=== PATIENT | female | born 1950 | race African-American/Black ===

== ENCOUNTER 2019-02-25 14:21 | Inpatient (IN) | payer BC, MEDICARE, OTHER ==
[~2019-02-25] VITALS: Ht 162.6 cm; Wt 71.2 kg
[~2019-02-25 14:21] MED LIST: ASPI-1393 PO; GEMF600T5 PO; GLIP10TA3 PO; LISI40TA4 PO; METF-416 PO; OMEP20CA5 PO; SITA50TA3 PO
[2019-02-25 16:09] LABS: CHLORIDE 108 mEq/L (98-107)
[2019-02-25 16:10] LABS: EOSINOPHILS % 1.8 % (0.0-5.0); LYMPHOCYTES % 26.2 % (20.0-50.0); MEAN CORPUSCULAR VOLUME 60.9 fL (81.0-99.0); MEAN PLATELET VOLUME 8.2 fl (7.4-10.4); MONOCYTES % 8.1 % (2.0-8.0); NEUTROPHILS % 62.9 % (40.0-76.0); PLATELET 426 x1000/uL (130-400); RED BLOOD CELL COUNT 2.88 mill/uL (4.2-5.4); RED CELL DISTRIBUTION WIDTH 19.7 % (11.6-14.6)
[2019-02-25 16:11] LABS: PARTIAL THROMBOPLASTIN TIME 26.8 sec (23.4-31.0); PROTHROMBIN TIME 10.8 sec (9.6-11.0)
[2019-02-25 16:16] LABS: HEMATOCRIT. 17.6 % (36.0-48.0); HEMOGLOBIN. 4.9 g/dL (12.0-16.0)
[2019-02-25 17:34] LABS: TOTAL IRON BINDING CAPACITY 802 ug/dL (250-450)
[2019-02-25 17:35] LABS: HAPTOGLOBIN 247 mg/dL (30-200)
[2019-02-25 17:48] LABS: PLATELET ESTIMATE INCREASED
[2019-02-26] VITALS (14 sets, daily range): BP systolic 123–154; BP diastolic 51–78
[2019-02-26] MEDS ORDERED: HYDR12.54 MT (02:07)
[2019-02-26] MEDS ORDERED: FAMO20TA8 MT (02:07)
[2019-02-26] MEDS ORDERED: DEXTROSE 50% WATER 50ML SYRINGE IV PRN (02:15)
[2019-02-26] MEDS ORDERED: GEMFIBROZIL PO SCH (02:15)
[2019-02-26 02:39] LABS: EOSINOPHILS % 1.9 % (0.0-5.0); LYMPHOCYTES % 18.4 % (20.0-50.0); MEAN CORPUSCULAR HEMOGLOBIN 19.3 pg (28.0-32.0); MEAN CORPUSCULAR VOLUME 64.4 fL (81.0-99.0); MEAN PLATELET VOLUME 7.8 fl (7.4-10.4); MONOCYTES % 7.5 % (2.0-8.0); NEUTROPHILS % 71.2 % (40.0-76.0); PLATELET 368 x1000/uL (130-400); RED BLOOD CELL COUNT 3.02 mill/uL (4.2-5.4); RED CELL DISTRIBUTION WIDTH 25.1 % (11.6-14.6)
[2019-02-26 02:44] LABS: PROTHROMBIN TIME 10.8 sec (9.6-11.0)
[2019-02-26 02:45] LABS: HEMATOCRIT. 19.5 % (36.0-48.0); HEMOGLOBIN. 5.8 g/dL (12.0-16.0)
[2019-02-26] MEDS: BLOOD SUGAR DIAGNOSTIC STRIP TEST SCH ×4 (07:12→21:00)
[2019-02-26] MEDS: INSULIN LISPRO 100 UNITS/ML SUBCUT SCH ×4 (07:54→22:34)
[2019-02-26] MEDS: GEMFIBROZIL 600MG TABLET PO SCH ×2 (09:00→16:46)
[2019-02-26] MEDS ORDERED: ASPIRIN 81MG TABLET PO SCH (09:00)
[2019-02-26] MEDS ORDERED: MEDICATION NOT ON FORMULARY EA (Aspirin (Aspirin Low Dose) 1 TAB) PO SCH (09:00)
[2019-02-26] MEDS ORDERED: MEDICATION NOT ON FORMULARY EA (Hydrochlorothiazide 1 TAB) MT SCH (09:00)
[2019-02-26 10:28] LABS: BASOPHILS % 0.6 % (0.0-2.0); EOSINOPHILS % 3.4 % (0.0-5.0); LYMPHOCYTES % 16.3 % (20.0-50.0); MEAN CORPUSCULAR HEMOGLOBIN 21.2 pg (28.0-32.0); MEAN CORPUSCULAR VOLUME 68.6 fL (81.0-99.0); MEAN PLATELET VOLUME 8.3 fl (7.4-10.4); MONOCYTES % 8.2 % (2.0-8.0); NEUTROPHILS % 71.5 % (40.0-76.0); PLATELET 350 x1000/uL (130-400); RED BLOOD CELL COUNT 3.29 mill/uL (4.2-5.4); RED CELL DISTRIBUTION WIDTH 28.7 % (11.6-14.6)
[2019-02-26 10:30] LABS: PROTHROMBIN TIME 10.6 sec (9.6-11.0)
[2019-02-26 10:35] LABS: HEMATOCRIT. 22.6 % (36.0-48.0)
[2019-02-26] MEDS: LISINOPRIL 40MG TABLET PO SCH (11:23)
[2019-02-26] MEDS: HYDROCHLOROTHIAZIDE 12.5MG CAPSULE PO SCH (11:24)
[2019-02-26] MEDS: PANTOPRAZOLE SODIUM 40 MG/VIAL IV SCH ×2 (13:04→22:13)
[2019-02-26] MEDS: DEXT 5%/0.45% NACL 1000ML 1,000 ML IV SCH (13:13)
[2019-02-26] MEDS ORDERED: LORAZEPAM 2MG/ML CPJ IV PRN (15:15)
[2019-02-26] MEDS ORDERED: MORPHINE SULFATE 2 MG/ML CPJ (NOT FOR IM USE) IV PRN (15:15)
[2019-02-26] MEDS ORDERED: ONDANSETRON HCL 4MG/2ML INJ IV PRN (15:15)
[2019-02-26] MEDS ORDERED: DIPHENHYDRAMINE 50MG/ML VIAL IV PRN (15:15)
[2019-02-26] MEDS ORDERED: LACTULOSE 20G/30ML UDC PO PRN (15:15)
[2019-02-26] MEDS ORDERED: HYDRALAZINE 20MG/ML VIAL IV PRN (15:15)
[2019-02-26] MEDS: IRON SUCROSE COMPLEX 100 MG/5 ML ML IV SCH (16:46)
[2019-02-26 20:07] LABS: CLARITY URINE CLEAR (CLEAR); COLOR URINE YELLOW (YELLOW); KETONES URINE NEGATIVE (NEGATIVE); LEUKOCYTE ESTERASE URINE 1+ (NEGATIVE); NITRITE URINE NEGATIVE (NEGATIVE); OCCULT BLOOD URINE TRACE (NEGATIVE); PH URINE 5.5 (4.5-8.0); PROTEIN URINE NEGATIVE (NEGATIVE); SPECIFIC GRAVITY URINE 1.013 (1.005-1.030); UROBILINOGEN URINE 0.2 E.U./dL (0.2-1.0)
[2019-02-26 20:30] LABS: HEMATOCRIT 24.2 % (36.0-48.0); HEMOGLOBIN 7.7 g/dL (12.0-16.0)
[2019-02-26 20:38] LABS: INR 1.1; PROTHROMBIN TIME 10.9 sec (9.6-11.0)
[2019-02-26 20:44] LABS: *AMPHETAMINES SCREEN URINE NEGATIVE (NEGATIVE); *BARBITURATES SCREEN URINE NEGATIVE (NEGATIVE); *COCAINE SCREEN URINE NEGATIVE (NEGATIVE)
[2019-02-26 20:45] LABS: *BENZODIAZEPINES SCREEN URINE NEGATIVE (NEGATIVE); CANNABINOID URINE SCREEN NEGATIVE (NEGATIVE); METHADONE URINE SCREEN NEGATIVE (NEGATIVE); OPIATES URINE SCREEN NEGATIVE (NEGATIVE); PHENCYCLIDINE URINE SCREEN NEGATIVE (NEGATIVE)
[2019-02-26 21:01] LABS: FOLIC ACID (FOLATE) SERUM >20 ng/mL ng/mL (>5.38)
[2019-02-26 21:12] LABS: VITAMIN B12 SERUM 383 pg/mL (211-911)
[2019-02-26] MEDS: HYDROCODONE/ACETAMINOPHEN 5/325MG TABLET PO PRN (23:50)
[2019-02-27] VITALS: BP 127/66
[2019-02-27 00:48] LABS: HEMATOCRIT 26.1 % (36.0-48.0); HEMOGLOBIN 8.3 g/dL (12.0-16.0)
[2019-02-27 04:00] VITALS: BP 119/62
[2019-02-27] MEDS: BLOOD SUGAR DIAGNOSTIC STRIP TEST SCH ×4 (06:20→20:28)
[2019-02-27] MEDS: INSULIN LISPRO 100 UNITS/ML SUBCUT SCH ×4 (06:44→21:16)
[2019-02-27 07:57] LABS: T4 FREE 1.12 ng/dL (0.76-1.46)
[2019-02-27 08:00] VITALS: BP 119/68
[2019-02-27] MEDS: DEXT 5%/0.45% NACL 1000ML 1,000 ML IV SCH ×2 (08:30→18:06)
[2019-02-27] MEDS ORDERED: METOCLOPRAMIDE HCL 10MG/2ML VIAL IV NR ×3 (09:00→19:00)
[2019-02-27] MEDS ORDERED: BISACODYL 5MG TABLET PO NR ×3 (09:00→19:00)
[2019-02-27 09:47] LABS: BASOPHILS % 0.8 % (0.0-2.0); EOSINOPHILS % 3.2 % (0.0-5.0); HEMATOCRIT. 26.4 % (36.0-48.0); HEMOGLOBIN. 8.2 g/dL (12.0-16.0); LYMPHOCYTES % 17.5 % (20.0-50.0); MEAN CORPUSCULAR HEMOGLOBIN 21.9 pg (28.0-32.0); MEAN CORPUSCULAR VOLUME 70.7 fL (81.0-99.0); MEAN PLATELET VOLUME 8.7 fl (7.4-10.4); MONOCYTES % 9.4 % (2.0-8.0); NEUTROPHILS % 69.1 % (40.0-76.0); PLATELET 325 x1000/uL (130-400); RED BLOOD CELL COUNT 3.74 mill/uL (4.2-5.4); RED CELL DISTRIBUTION WIDTH 29.4 % (11.6-14.6)
[2019-02-27] MEDS: GEMFIBROZIL 600MG TABLET PO SCH ×2 (09:48→17:57)
[2019-02-27] MEDS: PANTOPRAZOLE SODIUM 40 MG/VIAL IV SCH ×2 (09:48→20:28)
[2019-02-27] MEDS: LISINOPRIL 40MG TABLET PO SCH (09:49)
[2019-02-27 09:52] LABS: CHLORIDE 109 mEq/L (98-107)
[2019-02-27] MEDS: HYDROCHLOROTHIAZIDE 12.5MG CAPSULE PO SCH (09:52)
[2019-02-27] MEDS: HYDROCODONE/ACETAMINOPHEN 5/325MG TABLET PO PRN (09:58)
[2019-02-27] MEDS ORDERED: SORBITOL 70% SOLN 30ML PO NR ×3 (10:00→20:00)
[2019-02-27 12:00] VITALS: BP 110/63
[2019-02-27 16:00] VITALS: BP_SYST 100; BP_SYST 110; BP_SYST 79; BP_DIAS 45; BP_DIAS 55; BP_DIAS 60
[2019-02-27] MEDS: IRON SUCROSE COMPLEX 100 MG/5 ML ML IV SCH (17:57)
[2019-02-27 19:20] LABS: CHLORIDE 105 mEq/L (98-107)
[2019-02-27 19:34] LABS: HEMATOCRIT 31.3 % (36.0-48.0); HEMOGLOBIN 9.4 g/dL (12.0-16.0)
[2019-02-27 20:00] VITALS: BP_SYST 81; BP_SYST 87; BP_SYST 88; BP_DIAS 50; BP_DIAS 51
[2019-02-27] MEDS: LEVOFLOXACIN 500MG PREMIX 100 ML IV SCH (20:28)
[2019-02-27] MEDS ORDERED: SODIUM CHLORIDE 0.9% 250 ML IV ONE (21:00)
[2019-02-28] VITALS: BP 84/53
[2019-02-28 00:25] VITALS: BP 110/63
[2019-02-28] MEDS: DEXT 5%/0.45% NACL 1000ML 1,000 ML IV SCH ×3 (01:31→18:36)
[2019-02-28 04:00] VITALS: BP 93/53
[2019-02-28] MEDS: BLOOD SUGAR DIAGNOSTIC STRIP TEST SCH ×2 (06:19→21:00)
[2019-02-28] MEDS: INSULIN LISPRO 100 UNITS/ML SUBCUT SCH (06:24)
[2019-02-28 07:08] LABS: INR 1.1; PARTIAL THROMBOPLASTIN TIME 27.6 sec (23.4-31.0); PROTHROMBIN TIME 11.1 sec (9.6-11.0)
[2019-02-28 07:18] LABS: BASOPHILS % 0.5 % (0.0-2.0); EOSINOPHILS % 0.7 % (0.0-5.0); HEMOGLOBIN. 8.9 g/dL (12.0-16.0); LYMPHOCYTES % 12.6 % (20.0-50.0); MEAN CORPUSCULAR HEMOGLOBIN 21.6 pg (28.0-32.0); MEAN CORPUSCULAR VOLUME 70.8 fL (81.0-99.0); MEAN PLATELET VOLUME 8.6 fl (7.4-10.4); MONOCYTES % 8.7 % (2.0-8.0); NEUTROPHILS % 77.5 % (40.0-76.0); PLATELET 360 x1000/uL (130-400); RED CELL DISTRIBUTION WIDTH 29.8 % (11.6-14.6)
[2019-02-28 07:41] LABS: PHOSPHORUS 4.6 mg/dL (2.5-4.9)
[2019-02-28 08:00] VITALS: BP 111/62
[2019-02-28] MEDS: HYDROCHLOROTHIAZIDE 12.5MG CAPSULE PO SCH (09:00)
[2019-02-28] MEDS: LISINOPRIL 40MG TABLET PO SCH (09:00)
[2019-02-28] MEDS: GEMFIBROZIL 600MG TABLET PO SCH ×2 (09:00→18:36)
[2019-02-28] MEDS: PANTOPRAZOLE SODIUM 40 MG/VIAL IV SCH ×2 (09:22→21:45)
[2019-02-28] MEDS ORDERED: KCL 20MEQ/100ML PREMIX 100 ML IV NR (11:00)
[2019-02-28 12:00] VITALS: BP 130/81
[2019-02-28] MEDS ORDERED: FENTANYL CITRATE/PF 50MCG/ML 2ML VIAL IV PRN (14:40)
[2019-02-28] MEDS ORDERED: MIDAZOLAM HCL 5 MG/5 ML VIAL IV PRN (14:41)
[2019-02-28] MEDS ORDERED: MIDAZOLAM HCL 5 MG/5 ML VIAL ONE ×3 (14:43→15:20)
[2019-02-28] MEDS ORDERED: FENTANYL CITRATE/PF 50MCG/ML 2ML VIAL ONE (14:43)
[2019-02-28] MEDS ORDERED: SIMETHICONE 40 MG/0.6 ML 30ML ONE (14:43)
[2019-02-28] MEDS ORDERED: DIPHENHYDRAMINE 50MG/ML VIAL ONE (15:20)
[2019-02-28] MEDS ORDERED: DIPHENHYDRAMINE 50MG/ML VIAL IV PRN (16:30)
[2019-02-28] MEDS: IRON SUCROSE COMPLEX 100 MG/5 ML ML IV SCH (18:36)
[2019-02-28 20:00] VITALS: BP_SYST 122; BP_SYST 126; BP_SYST 135; BP_DIAS 70; BP_DIAS 72; BP_DIAS 76
[2019-02-28] MEDS: LEVOFLOXACIN 500MG PREMIX 100 ML IV SCH (21:45)
[2019-03-01] VITALS: BP 125/72
[2019-03-01] MEDS: INSULIN LISPRO 100 UNITS/ML SUBCUT SCH ×3 (00:24→12:43)
[2019-03-01 04:00] VITALS: BP 117/56
[2019-03-01] MEDS: DEXT 5%/0.45% NACL 1000ML 1,000 ML IV SCH ×2 (04:32→13:49)
[2019-03-01] MEDS: BLOOD SUGAR DIAGNOSTIC STRIP TEST SCH ×2 (06:46→12:29)
[2019-03-01 08:00] VITALS: BP 134/65
[2019-03-01] MEDS: LISINOPRIL 40MG TABLET PO SCH (09:36)
[2019-03-01] MEDS: HYDROCHLOROTHIAZIDE 12.5MG CAPSULE PO SCH (09:38)
[2019-03-01] MEDS: GEMFIBROZIL 600MG TABLET PO SCH (09:41)
[2019-03-01] MEDS: PANTOPRAZOLE SODIUM 40 MG/VIAL IV SCH (10:57)
[2019-03-01 12:00] VITALS: BP 151/69
[2019-03-01 16:00] VITALS: BP 122/67
[2019-03-01 16:16] LABS: HEMOGLOBIN 8.1 g/dL (12.0-16.0); MEAN CORPUSCULAR HEMOGLOBIN 22.5 pg (28.0-32.0); MEAN CORPUSCULAR VOLUME 71.9 fL (81.0-99.0); PLATELET 289 x1000/uL (130-400); RED BLOOD CELL COUNT 3.61 mill/uL (4.2-5.4); RED CELL DISTRIBUTION WIDTH 31.1 % (11.6-14.6)
[2019-03-01 16:28] LABS: CHLORIDE 109 mEq/L (98-107)
[2019-03-01 17:25] VITALS: BP 20/122
[2019-03-02] MEDS ORDERED: LEVOFLOXACIN 500MG TABLET PO SCH (21:00)
== END 2019-03-01 18:30 | disposition home or self-care (01) | DRG 378 ==
LOC: ER 14:21 → 6EST 16:50 → EDBEDREQSVC 17:08 → EDBEDREQ 17:08 → ENRESERV 22:53 → 8WST 02-26 08:14
PROVIDERS: ADMIT Internal Medicine; ATTEND Internal Medicine
PROC: 30233N1 Transfusion of Nonautologous Red Blood Cells into Peripheral Vein, Percutaneous Approach (ICD-10-PCS; principal; 2019-02-25)
PROC: 0DB98ZX Excision of Duodenum, Via Natural or Artificial Opening Endoscopic, Diagnostic (ICD-10-PCS; 2019-02-28)
PROC: 0DB68ZX Excision of Stomach, Via Natural or Artificial Opening Endoscopic, Diagnostic (ICD-10-PCS; 2019-02-28)
PROC: 0DJD8ZZ Inspection of Lower Intestinal Tract, Via Natural or Artificial Opening Endoscopic (ICD-10-PCS; 2019-02-28)
DX: K57.31 Diverticulosis of large intestine without perforation or abscess with bleeding (principal); N39.0 Urinary tract infection, site not specified; K29.81 Duodenitis with bleeding; K29.71 Gastritis, unspecified, with bleeding; K64.8 Other hemorrhoids; D50.9 Iron deficiency anemia, unspecified; I10 Essential (primary) hypertension; E78.5 Hyperlipidemia, unspecified; E86.0 Dehydration; R16.0 Hepatomegaly, not elsewhere classified; D25.9 Leiomyoma of uterus, unspecified; E78.00 Pure hypercholesterolemia, unspecified; N20.0 Calculus of kidney; E11.65 Type 2 diabetes mellitus with hyperglycemia; N83.209 Unspecified ovarian cyst, unspecified side; Z79.899 Other long term (current) drug therapy; Z79.82 Long term (current) use of aspirin; Z79.84 Long term (current) use of oral hypoglycemic drugs
CPT/HCPCS: 36415; 71045; 74176; 76700; 76856; 80048; 80061; 80305; 81003; 82270; 82378; 82607; 82746; 82962; 83010; 83036; 83540; 83550; 83615; 83735; 83880; 84100; 84439; 84443; 84484; 85014; 85018; 85027; 85044; 85049; 85384; 86304; 86850; 86900; 86920; 88305; 88312; 88313; 93005; 93306; 93970; 99152; 99153; 99291; C9113; J1200; J1815; J1956; J2250; J2765; J3010; J3480; P9016; P9021; G0500

== ENCOUNTER 2019-11-01 05:31 | Emergency (ER) | payer BC, OTHER ==
[~2019-11-01] VITALS: Ht 162.6 cm; Wt 73.0 kg
[~2019-11-01 05:31] MED LIST changes: -ASPI-1393 PO; +FAMO20TA8 MT; +HYDR12.54 MT; +OMEP20CA14 PO; -OMEP20CA5 PO
[2019-11-01 07:21] LABS: CHLORIDE 105 mEq/L (98-107)
[2019-11-01 07:23] LABS: BASOPHILS % 1.1 % (0.0-2.0); EOSINOPHILS % 2.2 % (0.0-5.0); HEMATOCRIT. 36.5 % (36.0-48.0); HEMOGLOBIN. 11.9 g/dL (12.0-16.0); LYMPHOCYTES % 31.2 % (20.0-50.0); MEAN CORPUSCULAR HEMOGLOBIN 26.4 pg (28.0-32.0); MEAN PLATELET VOLUME 9.4 fl (7.4-10.4); MONOCYTES % 8.8 % (2.0-8.0); NEUTROPHILS % 56.7 % (40.0-76.0); PLATELET 265 x1000/uL (130-400); RED BLOOD CELL COUNT 4.51 mill/uL (4.2-5.4); RED CELL DISTRIBUTION WIDTH 17.1 % (11.6-14.6)
[2019-11-01] MEDS ORDERED: MAGNESIUM/ALUMINUM HYDROXIDE/SIMETHICONE 30ML UDC PO STA (07:37)
[2019-11-01] MEDS ORDERED: SODIUM CHLORIDE 0.9% 1,000 ML IV ONE (07:37)
[2019-11-01] MEDS ORDERED: FAMOTIDINE 20MG/2ML VIAL IV STA (07:37)
[2019-11-01] MEDS ORDERED: VISCOUS LIDOCAINE 2% 15 ML UDC PO STA (07:37)
[2019-11-01] MEDS ORDERED: ONDANSETRON HCL 4MG/2ML INJ IV STA (07:37)
[2019-11-01] MEDS ORDERED: KETOROLAC 15MG/ML VIAL IV ONE (11:00)
[2019-11-01 11:35] VITALS: BP 139/84
== END 2019-11-01 11:53 | disposition home or self-care (01) ==
LOC: ER 05:31
DX: R07.89 Other chest pain (principal); D64.9 Anemia, unspecified; R10.10 Upper abdominal pain, unspecified; E11.65 Type 2 diabetes mellitus with hyperglycemia; E78.00 Pure hypercholesterolemia, unspecified; I10 Essential (primary) hypertension; Z87.891 Personal history of nicotine dependence; Z79.899 Other long term (current) drug therapy
CPT/HCPCS: 36415; 71045; 80053; 83690; 83880; 84484; 85025; 93005; 96361; 96374; 96375; 99285; J1885; J2405; J3490